=== PATIENT | female | born 1975 | race Caucasian/White ===

== ENCOUNTER 2018-10-14 01:04 | Inpatient (IN) | payer BC ==
[~2018-10-14] VITALS: Ht 154.9 cm; Wt 108.6 kg
[2018-10-14] MEDS ORDERED: normal saline 1000ML IV soln IV ONE (01:20)
[2018-10-14 01:47] LABS: URINE HCG NEGATIVE (NEG)
[2018-10-14 02:00] LABS: ALANINE AMINOTRANSFERASE 27 U/L (12-78); ALBUMIN/GLOBULIN RATIO 0.6 (1.1-1.5); ALKALINE PHOSPHATASE 76 IU/L (46-116); ANION GAP 11 (8-16); ASPARTATE AMINO TRANSFERASE 15 U/L (10-37); BILIRUBIN,TOTAL 0.8 MG/DL (0.1-1.0); BLOOD UREA NITROGEN 9 MG/DL (7-18); BUN/CREATININE RATIO 9.2 (6.6-38.0); CALCIUM 8.9 MG/DL (8.5-10.1); CHLORIDE 103 MMOL/L (99-107); CREATININE 0.98 MG/DL (0.40-0.90); GLUCOSE 134 MG/DL (70-104); MAGNESIUM 1.8 MG/DL (1.5-2.4); POTASSIUM 3.4 MMOL/L (3.5-5.1); SODIUM 138 MMOL/L (135-145); TOTAL CARBON DIOXIDE 23.7 MMOL/L (24-32); TOTAL PROTEIN 7.7 G/DL (6.4-8.2); eGFR 62 ML/MIN
[2018-10-14 02:06] LABS: PARTIAL THROMBOPLASTIN TIME 31 SECONDS (22-32)
[2018-10-14] MEDS ORDERED: azithromycin/NS 500mg/250ml 250 ML IV ONE (02:55)
[2018-10-14] MEDS ORDERED: CefTRIAXone 2gm/D5W 50ml 50 ML IV ONE (02:55)
--- NOTE | 2018-10-14 03:01 | NUR ---
MD MADE AWARE OF PT INCREASING PAIN. NO NEW ORDERS AT THIS TIME.
[2018-10-14 03:10] LABS: CLARITY,URINE SLIGHTLY CLOUDY (Clear); COLOR,URINE YELLOW (Yellow); GLUCOSE, URINE NEGATIVE (Neg); KETONES,URINE NEGATIVE (Neg); LEUKOCYTE ESTERASE ,URINE TRACE (Neg); NITRITES, URINE NEGATIVE (Neg); OCCULT BLOOD,URINE SMALL (Neg); PROTEIN,URINE 30 mg/dl (Neg)
[2018-10-14 03:11] LABS: UA COLLECTION TYPE CLN CATCH MIDSTREAM
--- NOTE | 2018-10-14 03:13 | NUR ---
2 LITERS OF NS GIVEN BOLUS-3RD LITER HELD PER DR. GREY DUE TO PT BECOMING MORE SOB
[2018-10-14 03:18] LABS: BASOPHILS # (AUTO) 0.1 X10'3 (0-0.2); BASOPHILS % (AUTO) 0.3 % (0-1); EOSINOPHILS % (AUTO) 0.2 % (0-6); HEMATOCRIT 37.2 % (35.0-45.0); HEMOGLOBIN 12.2 g/dl (12.0-16.0); LYMPHOCYTES # (AUTO) 1.9 X10'3 (1.1-4.8); LYMPHOCYTES % (AUTO) 9.1 % (21-51); MEAN CORPUSCULAR HEMOGLOBIN 29.3 PG (27.0-31.0); MEAN CORPUSCULAR HGB CONC 32.7 g/dL (33.0-36.5); MEAN CORPUSCULAR VOLUME 89.6 FL (78-98); MEAN PLATELET VOLUME 11.9 FL (7.4-10.4); MONOCYTES # (AUTO) 1.5 X10'3 (0-0.9); MONOCYTES % (AUTO) 7.1 % (2-12); NEUTROPHILS # (AUTO) 17.8 X10'3 (1.8-7.7); NEUTROPHILS % (AUTO) 83.3 % (42-75); PLATELET COUNT 265 X10'3 (140-440); RED BLOOD COUNT 4.15 X10'6 (4.20-5.60); RED CELL DISTRIBUTION WIDTH 14.1 % (11.5-14.5); WHITE BLOOD COUNT 21.4 X10'3 (4.5-11.0)
--- NOTE | 2018-10-14 03:20 | NUR ---
PLACED PT ON 2L O2 NASAL CANNULA PER DR GREY.
[2018-10-14] MEDS ORDERED: HYDR-4353 PO (03:22)
[2018-10-14] MEDS ORDERED: GABA-532 PO (03:22)
[2018-10-14] MEDS ORDERED: DESV25TA PO (03:22)
[2018-10-14] MEDS ORDERED: OVRAL (03:22)
[2018-10-14] MEDS ORDERED: CYCL-1 PO (03:22)
[2018-10-14] MEDS ORDERED: LISI-600 PO (03:22)
[2018-10-14] MEDS ORDERED: albuterol 2.5 mg/0.5ml nebule NEB ONE (03:25)
[2018-10-14] MEDS ORDERED: morphine 4 MG/ML inj SYRINge IV ONE (03:25)
[2018-10-14] MEDS ORDERED: albuterol 2.5 MG/3 ML nebule NEB ONE (03:25)
[2018-10-14 03:27] LABS: URINE AMPHETAMINE SCREEN NEGATIVE (Neg); URINE BARBITUATE SCREEN NEGATIVE (Neg); URINE BENZODIAZEPINES SCREEN NEGATIVE (Neg); URINE CANNABINOID SCREEN NEGATIVE (Neg); URINE COCAINE SCREEN NEGATIVE (Neg); URINE METHADONE SCREEN NEGATIVE (Neg); URINE OPIATE SCREEN POSITIVE (Neg); URINE PHENCYCLIDINE SCREEN NEGATIVE (Neg)
[2018-10-14 03:29] LABS: BACTERIA,URINE 2+ /HPF (Neg); MUCUS STRANDS MANY /LPF (Neg); RBC,URINE NONE SEEN /HPF (0-2); SQUAMOUS EPITHELIAL CELL,UR MANY /LPF (FEW)
[2018-10-14] MEDS ORDERED: HYDROcodone/acetaminophen 5mg/325mg tablet PO PRN (03:40)
[2018-10-14] MEDS ORDERED: magnesium 4gm in 100ml NS 100 ML IV PRN (03:40)
[2018-10-14] MEDS ORDERED: magnesium Cl slow-release 64mg tablet PO PRN (03:40)
[2018-10-14] MEDS ORDERED: ondansetron/PF 4mg/2ml inj IV PRN (03:40)
[2018-10-14] MEDS ORDERED: magnesium 2GM in 50ml NS 50 ML IV PRN (03:40)
[2018-10-14 04:21] LABS: LARGE PLATELETS FEW; PLATELET ESTIMATE NORMAL
[2018-10-14] MEDS ORDERED: iohexol 300mg/ml 100ml inj. ONE (04:29)
[2018-10-14] MEDS: normal saline 1000ml 1,000 ML IV SCH ×3 (04:35→14:10)
[2018-10-14 05:12] VITALS: BP 142/81
[2018-10-14] MEDS: morphine 2 MG/ML inj. syringe IV PRN ×3 (05:21→16:03)
[2018-10-14] MEDS: VANCOmycin 1250MG/NS 250ml Bag 250 ML IV SCH ×2 (05:21→15:58)
[2018-10-14 06:00] VITALS: BP 140/74
[2018-10-14] MEDS: acetaminophen 325mg tablet PO PRN (06:33)
[2018-10-14] MEDS ORDERED: pantoprazole 40mg Tablet.DR PO SCH (07:30)
[2018-10-14] MEDS ORDERED: lisinopril 20mg tablet PO SCH (08:00)
[2018-10-14] MEDS: DESVENLAFAXINE SUCCINATE 50 MG PO SCH (08:00)
[2018-10-14] MEDS: HYDROcodone/acetaminophen 10/325mg tab PO PRN ×3 (09:30→20:07)
[2018-10-14] MEDS: pantoprazole 40mg Tablet.DR PO SCH (09:33)
[2018-10-14] MEDS: piperacillin/tazo 3.375gm/50ml 50 ML IV SCH ×2 (10:04→15:56)
[2018-10-14 11:00] VITALS: BP 135/89
[2018-10-14] MEDS ORDERED: potassium Cl 20 mEq SR tablet PO PRN (12:15)
[2018-10-14] MEDS ORDERED: potassium CL 10mEq/100ml bag 100 ML IV PRN (12:15)
[2018-10-14] MEDS: potassium Cl 20 mEq SR tablet PO PRN ×2 (14:58→20:07)
[2018-10-14 15:00] VITALS: BP 111/54
[2018-10-14] MEDS: metoprolol tartrate 25mg tablet PO SCH ×2 (16:04→20:06)
--- NOTE | 2018-10-14 16:51 | NUR ---
PAGER ID: [phone] MESSAGE: Medardo 3015AIsaias. Lab just called and said they do not have the 2nd blood culture for this patient. The patient is receiving abx would you like them to come draw it or not. Freida [id number]
--- NOTE | 2018-10-14 17:50 | NUR ---
Rm [id number]. Patient would like a breathing trxt lashon. Thank you.
--- NOTE | 2018-10-14 18:33 | NUR ---
Problems reprioritized. Patient report given, questions answered & plan of care reviewed with Chris JOSEPH. Patient stable at transfer of care.
--- NOTE | 2018-10-14 18:34 | NUR ---
Patient in room PCU 3017B. I have received report from JAKE Guan and had the opportunity to ask questions and assume patient care. Patient awake for bedside report and is stable at this time. Vancomycin and Zosyn infusing per provider order. Will continue to monitor closely.
[2018-10-14] MEDS: ipratropium/albuterol 3ml nebule NEB PRN (18:36)
[2018-10-14 19:00] VITALS: BP 156/90
[2018-10-14] MEDS: lactobacillus rhamnosus 10,000 MMU CELLS/CAPSULE PO SCH (20:05)
[2018-10-14 23:00] VITALS: BP 111/54
[2018-10-15] MEDS: normal saline 1000ml 1,000 ML IV SCH ×5 (00:01→22:43)
[2018-10-15] MEDS: HYDROcodone/acetaminophen 10/325mg tab PO PRN ×5 (00:03→22:36)
[2018-10-15] MEDS: potassium Cl 20 mEq SR tablet PO PRN (00:03)
[2018-10-15] MEDS: piperacillin/tazo 3.375gm/50ml 50 ML IV SCH ×3 (00:15→16:33)
[2018-10-15 03:00] VITALS: BP 138/56
[2018-10-15] MEDS: VANCOmycin 1250MG/NS 250ml Bag 250 ML IV SCH (04:41)
[2018-10-15 06:03] LABS: BASOPHILS # (AUTO) 0.1 X10'3 (0-0.2); BASOPHILS % (AUTO) 0.6 % (0-1); EOSINOPHILS # (AUTO) 0.2 X10'3 (0-0.9); EOSINOPHILS % (AUTO) 1.2 % (0-6); HEMATOCRIT 31.8 % (35.0-45.0); HEMOGLOBIN 10.6 g/dl (12.0-16.0); LYMPHOCYTES # (AUTO) 2.1 X10'3 (1.1-4.8); LYMPHOCYTES % (AUTO) 13.6 % (21-51); MEAN CORPUSCULAR HEMOGLOBIN 29.8 PG (27.0-31.0); MEAN CORPUSCULAR HGB CONC 33.4 g/dL (33.0-36.5); MEAN CORPUSCULAR VOLUME 89.1 FL (78-98); MONOCYTES # (AUTO) 0.9 X10'3 (0-0.9); MONOCYTES % (AUTO) 5.7 % (2-12); NEUTROPHILS # (AUTO) 12.5 X10'3 (1.8-7.7); NEUTROPHILS % (AUTO) 78.9 % (42-75); PLATELET COUNT 235 X10'3 (140-440); RED BLOOD COUNT 3.56 X10'6 (4.20-5.60); RED CELL DISTRIBUTION WIDTH 13.7 % (11.5-14.5); WHITE BLOOD COUNT 15.8 X10'3 (4.5-11.0)
[2018-10-15 06:06] LABS: ALBUMIN 2.2 G/DL (3.4-5.0); ANION GAP 12 (8-16); BLOOD UREA NITROGEN 7 MG/DL (7-18); BUN/CREATININE RATIO 8.3 (6.6-38.0); CALCIUM 8.5 MG/DL (8.5-10.1); CHLORIDE 107 MMOL/L (99-107); CREATININE 0.84 MG/DL (0.40-0.90); GLUCOSE 101 MG/DL (70-104); MAGNESIUM 1.8 MG/DL (1.5-2.4); POTASSIUM 3.6 MMOL/L (3.5-5.1); SODIUM 140 MMOL/L (135-145); TOTAL CARBON DIOXIDE 20.8 MMOL/L (24-32); eGFR 74 ML/MIN
--- NOTE | 2018-10-15 06:12 | NUR ---
Problems reprioritized. Patient report given, questions answered & plan of care reviewed with JAKE Guan and JAKE Reddy.
--- NOTE | 2018-10-15 06:26 | NUR ---
Patient in room PCU 3011. I have received report from Chris JOSEPH and had the opportunity to ask questions and assume patient care.
[2018-10-15 07:05] VITALS: BP 139/79
[2018-10-15] MEDS: lactobacillus rhamnosus 10,000 MMU CELLS/CAPSULE PO SCH ×2 (07:24→19:42)
[2018-10-15] MEDS: metoprolol tartrate 25mg tablet PO SCH ×2 (07:24→19:42)
[2018-10-15] MEDS: pantoprazole 40mg Tablet.DR PO SCH (07:24)
[2018-10-15] MEDS: DESVENLAFAXINE SUCCINATE 50 MG PO SCH (07:25)
[2018-10-15] MEDS: morphine 2 MG/ML inj. syringe IV PRN ×3 (07:26→19:49)
--- NOTE | 2018-10-15 08:38 | NUR ---
Page sent: [id number] Alyson Esparza. Patient needs PIV placed. Nursing attempts were unsuccessful. Thank you Maureen RN - PCU
[2018-10-15] MEDS: ipratropium/albuterol 3ml nebule NEB PRN ×3 (10:06→21:53)
--- NOTE | 2018-10-15 10:33 | NUR ---
PAGER ID: [phone] MESSAGE: Isaias Gomez. Patient cannot have Pristiq medication brought from home, can we discontinue the medication? Freida [phone]
[2018-10-15 11:00] VITALS: BP 150/95
[2018-10-15 15:00] VITALS: BP 144/91
[2018-10-15] MEDS ORDERED: VANCOMYCIN LEVEL IV ONE (15:30)
--- NOTE | 2018-10-15 18:21 | NUR ---
Problems reprioritized. Patient report given, questions answered & plan of care reviewed with Chris JOSEPH. Patient stable at transfer of care.
--- NOTE | 2018-10-15 18:24 | NUR ---
[place] documentation: I have reviewed and agree with interventions, assessments performed and documented by Maureen JOSEPH. [place] Medication Administration: For this medication-pass time frame, medication were reviewed, dispensed, administered and documented per hospital policy by Maureen JOSEPH.
--- NOTE | 2018-10-15 18:47 | NUR ---
Patient in room PCU 3012a. I have received report from JAKE Guan and had the opportunity to ask questions and assume patient care. Patient awake for bedside report and consuming evening meal in chair. On 2L NC. Zosyn infusing at 12.5 mL/hr. Will continue to monitor closely.
[2018-10-15 19:00] VITALS: BP 174/93
[2018-10-15 23:00] VITALS: BP 122/83
[2018-10-16] MEDS: piperacillin/tazo 3.375gm/50ml 50 ML IV SCH ×3 (00:17→17:43)
[2018-10-16] MEDS: HYDROcodone/acetaminophen 10/325mg tab PO PRN ×4 (03:49→21:16)
[2018-10-16] MEDS: ipratropium/albuterol 3ml nebule NEB PRN ×4 (04:10→20:19)
[2018-10-16] MEDS: normal saline 1000ml 1,000 ML IV SCH (04:46)
[2018-10-16 06:16] LABS: ALBUMIN 2.2 G/DL (3.4-5.0); ANION GAP 15 (8-16); BLOOD UREA NITROGEN 14 MG/DL (7-18); BUN/CREATININE RATIO 4.6 (6.6-38.0); CALCIUM 8.1 MG/DL (8.5-10.1); CHLORIDE 106 MMOL/L (99-107); CREATININE 3.03 MG/DL (0.40-0.90); GLUCOSE 137 MG/DL (70-104); MAGNESIUM 1.8 MG/DL (1.5-2.4); POTASSIUM 3.3 MMOL/L (3.5-5.1); SODIUM 139 MMOL/L (135-145); TOTAL CARBON DIOXIDE 17.7 MMOL/L (24-32); eGFR 17 ML/MIN
[2018-10-16 06:19] LABS: BASOPHILS # (AUTO) 0.1 X10'3 (0-0.2); BASOPHILS % (AUTO) 0.5 % (0-1); EOSINOPHILS # (AUTO) 0.2 X10'3 (0-0.9); EOSINOPHILS % (AUTO) 1.5 % (0-6); HEMATOCRIT 33.3 % (35.0-45.0); HEMOGLOBIN 10.9 g/dl (12.0-16.0); LYMPHOCYTES # (AUTO) 1.6 X10'3 (1.1-4.8); LYMPHOCYTES % (AUTO) 10.9 % (21-51); MEAN CORPUSCULAR HEMOGLOBIN 29.3 PG (27.0-31.0); MEAN CORPUSCULAR HGB CONC 32.7 g/dL (33.0-36.5); MEAN CORPUSCULAR VOLUME 89.4 FL (78-98); MEAN PLATELET VOLUME 10.5 FL (7.4-10.4); MONOCYTES # (AUTO) 1.1 X10'3 (0-0.9); MONOCYTES % (AUTO) 7.9 % (2-12); NEUTROPHILS # (AUTO) 11.5 X10'3 (1.8-7.7); NEUTROPHILS % (AUTO) 79.2 % (42-75); PLATELET COUNT 267 X10'3 (140-440); RED BLOOD COUNT 3.72 X10'6 (4.20-5.60); RED CELL DISTRIBUTION WIDTH 13.8 % (11.5-14.5); WHITE BLOOD COUNT 14.5 X10'3 (4.5-11.0)
--- NOTE | 2018-10-16 06:22 | NUR ---
Problems reprioritized. Patient report given, questions answered & plan of care reviewed with JAKE Berman.
--- NOTE | 2018-10-16 06:36 | NUR ---
Patient in room PCU 3015. I have received report from JAKE Perez and had the opportunity to ask questions and assume patient care.
[2018-10-16 07:00] VITALS: BP 141/92
[2018-10-16] MEDS ORDERED: sodium bicarbonate inj. 100 ML in dextrose 5%-water 1,000 ML IV SCH (07:15)
[2018-10-16] MEDS: pantoprazole 40mg Tablet.DR PO SCH (08:19)
[2018-10-16] MEDS: metoprolol tartrate 25mg tablet PO SCH ×2 (08:19→19:04)
[2018-10-16] MEDS: lactobacillus rhamnosus 10,000 MMU CELLS/CAPSULE PO SCH ×2 (08:20→20:00)
[2018-10-16] MEDS: sodium bicarbonate inj. 75 ML in dextrose 5% water 500ml 500 ML IV SCH ×4 (09:31→20:41)
--- NOTE | 2018-10-16 09:31 | NUR ---
Ms. Esparza, rm # [id number] K+3.3 - meets protocol for replacement. If Creatinine is above 2.5 dose must be cut in half. Since her Creatinine is so high, do you want me to give it at all? Antonella X [id number] pcu
[2018-10-16] MEDS ORDERED: potassium Cl 20 mEq SR tablet PO ONE ×2 (09:50→14:00)
--- NOTE | 2018-10-16 10:15 | NUR ---
Patient up to bathroom to void and became quite sob. SA02 down to 70's, 02 turned up to 4L/NC. Encouraged to breathe slower. RT paged for RT.
--- NOTE | 2018-10-16 10:18 | NUR ---
Message to Dr. Skye Esparza, 4486 A Ambulated to bathroom and became SOB and desaturated down to 78%. 02 turned up to 4 L and RT paged for a stat RT. Barely maintaining 91% on 4 L. Antonella [facility] EXT [id number]
[2018-10-16 11:00] VITALS: BP 203/116
--- NOTE | 2018-10-16 11:00 | NUR ---
RT in for treatment. Immediately afterward, SA02 was 97%. However, began to drop to high 80's.
--- NOTE | 2018-10-16 11:15 | NUR ---
Dr. Cheung in to see patient. BP 186/111 (verified manually). HR 128 SA02 down to 88%. Orders received.
[2018-10-16] MEDS: LORazepam 0.5 MG tablet PO PRN ×3 (11:49→20:18)
[2018-10-16 12:47] LABS: D-DIMER 2.85 MG/L FEU (0-0.50)
[2018-10-16 13:24] LABS: CLARITY,URINE SLIGHTLY CLOUDY (Clear); COLOR,URINE STRAW (Yellow); GLUCOSE, URINE NEGATIVE (Neg); KETONES,URINE NEGATIVE (Neg); LEUKOCYTE ESTERASE ,URINE TRACE (Neg); NITRITES, URINE NEGATIVE (Neg); OCCULT BLOOD,URINE TRACE-INTACT (Neg); PROTEIN,URINE NEGATIVE (Neg); UROBILINOGEN,URINE 0.2 E.U/dL (0.2-1.0)
[2018-10-16 13:37] LABS: UA COLLECTION TYPE STRAIGHT CATH
[2018-10-16 13:46] LABS: RENAL CELLS, URINE FEW /HPF
[2018-10-16 13:47] LABS: TRANSITIONAL EPI CELLS,URINE FEW /HPF
[2018-10-16 13:48] LABS: BACTERIA,URINE FEW /HPF (Neg); RBC,URINE 0-2 /HPF (0-2); SQUAMOUS EPITHELIAL CELL,UR FEW /LPF (FEW); WBC,URINE 0-4 /HPF (0-4)
[2018-10-16 14:16] LABS: ABG BASE EXCESS -7.3 mmol/L (-2.0-3.0); ABG HCO3 16.7 mmol/L (22.0-26.0); ABG OXYGEN SATURATION 92.6 % (95-98); ABG PCO2 (T) 29.7 mmHg (35.0-45.0); ABG PH (T) 7.369 (7.350-7.450); ABG PO2 (T) 63.9 mmHg (83-108); ALLEN'S TEST Positive; FCOHb 0.2 % (0.5-1.5); FLOW 3 L/min; FMetHb 0.1 % (0.3-1.12); FO2Hb 92.3 % (94-100); TOTAL HEMOGLOBIN 12.3 G/dl (12.0-16.0)
[2018-10-16 14:33] LABS: UA EOSINOPHILS NO EOS /HPF
[2018-10-16 15:00] VITALS: BP 203/116
--- NOTE | 2018-10-16 15:30 | NUR ---
Dr. Cheung paged regarding BP of 168/112. Came in to see patient and orders received.
[2018-10-16] MEDS: hydrALAZINE 20mg/ml inj. IV PRN (17:43)
--- NOTE | 2018-10-16 18:13 | NUR ---
Problems reprioritized. Patient report given, questions answered & plan of care reviewed with JAKE Perez.
[2018-10-16] MEDS: morphine 2 MG/ML inj. syringe IV PRN (18:49)
[2018-10-16 19:00] VITALS: BP 186/106
--- NOTE | 2018-10-16 19:12 | NUR ---
Patient in room PCU 0270D. I have received report from JAKE Berman and had the opportunity to ask questions and assume patient care. Patient awake for bedside report. Zosyn was not running and started at 1910. Zosyn scanned at 1743 per eMAR. Patient still states she is short of breath and appears flushed. 3L NC with humidifier. 0.5 mg morphine administered at 1849 and metoprolol administered at 1904 for elevated B/P of 186/110 HR 130. Attempted to notify day hospitalist with no return phone call. at bedside. Will continue to monitor patient closely.
--- NOTE | 2018-10-16 19:35 | NUR ---
Rechecked B/P and 143/69, HR 133 from 175/103, HR 136. Will continue to monitor patient closely.
[2018-10-16] MEDS ORDERED: furosemide 10 MG/1 ML 10ml inj IV ONE (20:15)
[2018-10-16] MEDS ORDERED: nitroGLYCERIN 1gm ointment UD TP ONE (20:15)
--- NOTE | 2018-10-16 20:21 | NUR ---
Patient c/o severe SOB and SYS BP 170's. Dr. Gordon notified and new oders for 1inch nitro paste to chest X1 and 80 mg IV puch lasix X1. Bicarb drip held temporarily. Will start once patient condition improves. Ativan administered by [employer] Zac. Addendum: 10/16/18 at 2249 by Estefania York RN 2144 patient's HR 121 and B/P 146/95. Decreased shortness of breath but still diaphoretic. Cold compresses to forehead, chest, and axillae. Family, Sarai, at bedside. Will continue to monitor closely.
[2018-10-16 23:00] VITALS: BP 145/90
[2018-10-17] VITALS (7 sets, daily range): BP systolic 147–183; BP diastolic 93–108
[2018-10-17] MEDS: piperacillin/tazo 3.375gm/50ml 50 ML IV SCH ×3 (00:27→20:58)
[2018-10-17] MEDS: sodium bicarbonate inj. 75 ML in dextrose 5% water 500ml 500 ML IV SCH ×7 (00:31→21:37)
[2018-10-17] MEDS: morphine 2 MG/ML inj. syringe IV PRN ×3 (00:43→15:52)
--- NOTE | 2018-10-17 01:35 | NUR ---
Per Dr. Gordon, Bicarb drip will resume at 0811.
[2018-10-17] MEDS: ipratropium/albuterol 3ml nebule NEB PRN ×2 (02:52→08:48)
[2018-10-17] MEDS: HYDROcodone/acetaminophen 10/325mg tab PO PRN ×3 (03:08→19:45)
[2018-10-17] MEDS ORDERED: VANCOMYCIN LEVEL IV ONE (04:30)
[2018-10-17 06:07] LABS: BASOPHILS # (AUTO) 0.1 X10'3 (0-0.2); EOSINOPHILS # (AUTO) 0.1 X10'3 (0-0.9); EOSINOPHILS % (AUTO) 0.9 % (0-6); HEMATOCRIT 31.4 % (35.0-45.0); HEMOGLOBIN 10.5 g/dl (12.0-16.0); LYMPHOCYTES # (AUTO) 1.5 X10'3 (1.1-4.8); LYMPHOCYTES % (AUTO) 12.2 % (21-51); MEAN CORPUSCULAR HEMOGLOBIN 29.6 PG (27.0-31.0); MEAN CORPUSCULAR HGB CONC 33.4 g/dL (33.0-36.5); MEAN CORPUSCULAR VOLUME 88.5 FL (78-98); MEAN PLATELET VOLUME 9.9 FL (7.4-10.4); MONOCYTES # (AUTO) 1.5 X10'3 (0-0.9); MONOCYTES % (AUTO) 12.8 % (2-12); NEUTROPHILS # (AUTO) 8.7 X10'3 (1.8-7.7); NEUTROPHILS % (AUTO) 73.1 % (42-75); PLATELET COUNT 281 X10'3 (140-440); RED BLOOD COUNT 3.55 X10'6 (4.20-5.60); RED CELL DISTRIBUTION WIDTH 14.1 % (11.5-14.5); WHITE BLOOD COUNT 11.9 X10'3 (4.5-11.0)
--- NOTE | 2018-10-17 06:23 | NUR ---
Problems reprioritized. Patient report given, questions answered & plan of care reviewed with JAKE Zavaleta.
[2018-10-17 06:38] LABS: ANION GAP 17 (8-16); BLOOD UREA NITROGEN 16 MG/DL (7-18); CALCIUM 8.5 MG/DL (8.5-10.1); CHLORIDE 104 MMOL/L (99-107); CREATININE 4.01 MG/DL (0.40-0.90); GLUCOSE 119 MG/DL (70-104); MAGNESIUM 1.7 MG/DL (1.5-2.4); POTASSIUM 3.4 MMOL/L (3.5-5.1); SODIUM 140 MMOL/L (135-145); TOTAL CARBON DIOXIDE 19.3 MMOL/L (24-32); eGFR 12 ML/MIN
[2018-10-17] MEDS: lactobacillus rhamnosus 10,000 MMU CELLS/CAPSULE PO SCH ×2 (07:47→19:43)
[2018-10-17] MEDS: pantoprazole 40mg Tablet.DR PO SCH (07:47)
[2018-10-17] MEDS: potassium Cl 20 mEq SR tablet PO PRN ×3 (07:48→17:25)
[2018-10-17] MEDS: metoprolol tartrate 25mg tablet PO SCH ×2 (07:49→19:44)
[2018-10-17 08:01] LABS: TOTAL CELLS COUNTED 100
[2018-10-17 08:04] LABS: PLATELET ESTIMATE NORMAL
[2018-10-17 08:10] LABS: TOXIC GRANULATION 1+
[2018-10-17 08:12] LABS: POLYCHROMASIA FEW
[2018-10-17 08:19] LABS: GIANT PLATELET FEW; LARGE PLATELETS MODERATE
[2018-10-17] MEDS: hydrALAZINE 20mg/ml inj. IV PRN ×2 (13:29→23:05)
[2018-10-17] MEDS: LORazepam 0.5 MG tablet PO PRN ×2 (13:47→23:45)
[2018-10-17] MEDS ORDERED: magnesium 4gm in 100ml NS 100 ML IV PRN (17:10)
[2018-10-17] MEDS ORDERED: magnesium Cl slow-release 64mg tablet PO PRN (17:10)
[2018-10-17] MEDS ORDERED: potassium Cl 20 mEq SR tablet PO PRN (17:10)
[2018-10-17] MEDS ORDERED: potassium CL 10mEq/100ml bag 100 ML IV PRN (17:10)
--- NOTE | 2018-10-17 18:00 | NUR ---
Patient in room PCU 3015. I have received report from Meghann JOSEPH and Nheal JOSEPH and had the opportunity to ask questions and assume patient care.
--- NOTE | 2018-10-17 18:13 | NUR ---
Problems reprioritized. Patient report given, questions answered & plan of care reviewed with paty.
[2018-10-17] MEDS: famotidine 20mg tablet PO SCH (19:43)
[2018-10-17] MEDS: heparin, porcine 5000 units/ml vial SQ SCH (19:46)
[2018-10-18] VITALS (7 sets, daily range): BP systolic 144–168; BP diastolic 88–104
[2018-10-18] MEDS: morphine 2 MG/ML inj. syringe IV PRN ×3 (01:40→20:29)
[2018-10-18] MEDS: sodium bicarbonate inj. 75 ML in dextrose 5% water 500ml 500 ML IV SCH (03:19)
[2018-10-18 05:31] LABS: BASOPHILS # (AUTO) 0.1 X10'3 (0-0.2); BASOPHILS % (AUTO) 0.8 % (0-1); EOSINOPHILS # (AUTO) 0.2 X10'3 (0-0.9); EOSINOPHILS % (AUTO) 1.6 % (0-6); HEMOGLOBIN 10.9 g/dl (12.0-16.0); LYMPHOCYTES # (AUTO) 1.4 X10'3 (1.1-4.8); LYMPHOCYTES % (AUTO) 14.6 % (21-51); MEAN CORPUSCULAR HEMOGLOBIN 29.7 PG (27.0-31.0); MEAN CORPUSCULAR HGB CONC 34.2 g/dL (33.0-36.5); MEAN CORPUSCULAR VOLUME 86.9 FL (78-98); MONOCYTES % (AUTO) 10.7 % (2-12); NEUTROPHILS % (AUTO) 72.3 % (42-75); PLATELET COUNT 326 X10'3 (140-440); RED BLOOD COUNT 3.68 X10'6 (4.20-5.60); RED CELL DISTRIBUTION WIDTH 13.7 % (11.5-14.5); WHITE BLOOD COUNT 9.8 X10'3 (4.5-11.0)
[2018-10-18 05:39] LABS: ANION GAP 11 (8-16); BLOOD UREA NITROGEN 19 MG/DL (7-18); BUN/CREATININE RATIO 4.8 (6.6-38.0); CALCIUM 8.1 MG/DL (8.5-10.1); CHLORIDE 103 MMOL/L (99-107); CREATININE 3.99 MG/DL (0.40-0.90); GLUCOSE 154 MG/DL (70-104); MAGNESIUM 1.7 MG/DL (1.5-2.4); POTASSIUM 3.1 MMOL/L (3.5-5.1); SODIUM 142 MMOL/L (135-145); TOTAL CARBON DIOXIDE 28.3 MMOL/L (24-32); eGFR 12 ML/MIN
--- NOTE | 2018-10-18 06:14 | NUR ---
Patient in room PCU 3015. I have received report from paty and had the opportunity to ask questions and assume patient care.
--- NOTE | 2018-10-18 06:21 | NUR ---
Problems reprioritized. Patient report given, questions answered & plan of care reviewed with Meghann JOSEPH.
[2018-10-18] MEDS: HYDROcodone/acetaminophen 10/325mg tab PO PRN ×3 (06:37→18:00)
[2018-10-18] MEDS: potassium Cl 20 mEq SR tablet PO PRN ×3 (06:37→23:06)
[2018-10-18] MEDS: famotidine 20mg tablet PO SCH ×2 (07:18→20:30)
[2018-10-18] MEDS: heparin, porcine 5000 units/ml vial SQ SCH (07:18)
[2018-10-18] MEDS: lactobacillus rhamnosus 10,000 MMU CELLS/CAPSULE PO SCH ×2 (07:18→20:30)
[2018-10-18] MEDS: metoprolol tartrate 25mg tablet PO SCH ×2 (07:18→15:37)
[2018-10-18] MEDS: piperacillin/tazo 3.375gm/50ml 50 ML IV SCH ×2 (07:19→20:28)
[2018-10-18 08:45] LABS: PLATELET ESTIMATE NORMAL; POLYCHROMASIA 1+; TOTAL CELLS COUNTED 100
--- NOTE | 2018-10-18 10:37 | NUR ---
Problems reprioritized. Patient report given, questions answered & plan of care reviewed with jose angel.
[2018-10-18] MEDS: normal saline 1000ml 1,000 ML IV SCH ×2 (10:40)
[2018-10-18] MEDS: hydrALAZINE 20mg/ml inj. IV PRN ×2 (11:47→19:25)
--- NOTE | 2018-10-18 12:14 | NUR ---
PAGER ID: [phone] MESSAGE: JAKE Newton, ext [phone], Isaias, patient has bloody nose, attempting to stop it, received heparin this morning, pressure applied and ice pack, may need rhino rocket, please call.
--- NOTE | 2018-10-18 12:15 | NUR ---
PAGER ID: [phone] MESSAGE: JAKE Newton, ext [phone], [phone], Isaias, patient bloody nose currently stable, pt BP 160/108, gave hydralazine, will update as needed
--- NOTE | 2018-10-18 13:10 | NUR ---
Received orders from Dr Young for PRN robitussin with codeine for cough as well as stat INR. Orders placed per .
[2018-10-18] MEDS ORDERED: guaiFENesin/codeine phos 10ml UD oral syrup PO PRN (13:15)
--- NOTE | 2018-10-18 13:22 | NUR ---
1255 DR NELSON AT BEDSIDE RHINO ROCKET PLACED IN LEFT CHERRY. SCANT BLEEDING TO LEFT CHERRY AND AROUND ROCKET. ICE PAC APPLIED O BRIDGE OF NOSE. 1320 STILL BLOOD DRIBBLING FROM AROUND [facility]. Addendum: 10/18/18 at 1325 by Bernadine Quiñonez RN Amended: Links added.
--- NOTE | 2018-10-18 13:39 | NUR ---
PAGER ID: [phone] MESSAGE: JAKE Newton, ext [phone], [phone], Isaias, patient's BP 169/114, hydralazine was given 1.5hrs ago. please advise, thank you.
[2018-10-18] MEDS ORDERED: amLODIPine 5mg tablet PO ONE (13:40)
[2018-10-18] MEDS ORDERED: hydrALAZINE 20mg/ml inj. IV ONE (13:55)
--- NOTE | 2018-10-18 14:53 | NUR ---
PAGER ID: [phone] MESSAGE: JAKE Newton, ext [phone], [phone], Isaias, BP is 172/110, 10mg hydralazine and 5mg amlodipine were given 1hr ago, there is fresh oozing around rhino rocket and from R nostril, patient states new headache in back of head.
--- NOTE | 2018-10-18 15:23 | NUR ---
PAGER ID: [phone] MESSAGE: JAKE Newton, ext [phone], [phone], Yudith Esparzaet dislodged, bleeding resumed, BP still 161/101.
--- NOTE | 2018-10-18 15:25 | NUR ---
PAGER ID: [phone] MESSAGE: [id number] LISA HUSSEIN. BLEEDING. HIGH SBP. BERNADINE AYALA Addendum: 10/18/18 at 1526 by Bernadine Quiñonez RN Amended: Links added.
--- NOTE | 2018-10-18 15:28 | NUR ---
DR NELSON @ [facility]. Addendum: 10/18/18 at 1536 by Bernadine Quiñonez RN Amended: Links added.
--- NOTE | 2018-10-18 15:36 | NUR ---
FUNMILAYO REAVES APPLIED BY DR NELSON. Addendum: 10/18/18 at 1536 by Bernadine Quiñonez RN Amended: Links added.
--- NOTE | 2018-10-18 15:47 | NUR ---
Metoprolol given early per Dr. Young to help with patient's BP, morphine also given for pain, will continue to monitor.
[2018-10-18] MEDS: LORazepam 0.5 MG tablet PO PRN ×2 (16:31→23:06)
[2018-10-18] MEDS: acetaminophen 325mg tablet PO PRN (16:36)
--- NOTE | 2018-10-18 17:44 | NUR ---
PAGER ID: [phone] MESSAGE: JAKE Newton, ext [phone], [phone], Isaias, patient states morphine was ineffective, pain level is still high, BP 158/100
--- NOTE | 2018-10-18 18:00 | NUR ---
Patient in room PCU 3015. I have received report from Lamar JOSEPH and had the opportunity to ask questions and assume patient care.
--- NOTE | 2018-10-18 18:28 | NUR ---
Problems reprioritized. Patient report given, questions answered & plan of care reviewed with JAKE De La O. Patient currently resting in bed, stable at shift change
[2018-10-19] MEDS: HYDROcodone/acetaminophen 10/325mg tab PO PRN ×5 (00:13→21:05)
[2018-10-19] MEDS: cyclobenzaprine 10mg tablet PO PRN ×2 (00:14→21:05)
[2018-10-19 02:00] VITALS: BP 158/82
--- NOTE | 2018-10-19 05:00 | NUR ---
Patient only needed hydralazine once tonight. Flexeril was given with Sixes at 0000, Patient stated that she does that at home before going to bed and works very well. She was able to sleep tonight.
[2018-10-19] MEDS: normal saline 1000ml 1,000 ML IV SCH ×2 (05:30→15:30)
[2018-10-19 06:00] VITALS: BP 165/100
[2018-10-19 06:25] LABS: BASOPHILS # (AUTO) 0.1 X10'3 (0-0.2); BASOPHILS % (AUTO) 1.1 % (0-1); EOSINOPHILS # (AUTO) 0.3 X10'3 (0-0.9); EOSINOPHILS % (AUTO) 2.9 % (0-6); HEMATOCRIT 29.7 % (35.0-45.0); LYMPHOCYTES # (AUTO) 1.5 X10'3 (1.1-4.8); LYMPHOCYTES % (AUTO) 13.8 % (21-51); MEAN CORPUSCULAR HEMOGLOBIN 29.4 PG (27.0-31.0); MEAN CORPUSCULAR HGB CONC 33.6 g/dL (33.0-36.5); MEAN CORPUSCULAR VOLUME 87.5 FL (78-98); MEAN PLATELET VOLUME 9.3 FL (7.4-10.4); MONOCYTES # (AUTO) 1.2 X10'3 (0-0.9); MONOCYTES % (AUTO) 10.6 % (2-12); NEUTROPHILS # (AUTO) 7.9 X10'3 (1.8-7.7); NEUTROPHILS % (AUTO) 71.6 % (42-75); PLATELET COUNT 334 X10'3 (140-440); RED BLOOD COUNT 3.39 X10'6 (4.20-5.60); RED CELL DISTRIBUTION WIDTH 14.1 % (11.5-14.5)
[2018-10-19 06:36] LABS: ANION GAP 12 (8-16); BLOOD UREA NITROGEN 22 MG/DL (7-18); BUN/CREATININE RATIO 5.8 (6.6-38.0); CALCIUM 8.1 MG/DL (8.5-10.1); CHLORIDE 105 MMOL/L (99-107); CREATININE 3.81 MG/DL (0.40-0.90); GLUCOSE 124 MG/DL (70-104); MAGNESIUM 1.7 MG/DL (1.5-2.4); POTASSIUM 3.4 MMOL/L (3.5-5.1); SODIUM 143 MMOL/L (135-145); TOTAL CARBON DIOXIDE 25.7 MMOL/L (24-32); eGFR 13 ML/MIN
--- NOTE | 2018-10-19 06:40 | NUR ---
Problems reprioritized. Patient report given, questions answered & plan of care reviewed with Pat RN.
--- NOTE | 2018-10-19 06:40 | NUR ---
Patient in room [facility] 3015. I have received report from Lamar JOSEPH and had the opportunity to ask questions and assume patient care. Addendum: 10/19/18 at 0645 by Jaylyn Gloria RN 10/18/18 [facility]
[2018-10-19] MEDS: morphine 2 MG/ML inj. syringe IV PRN ×2 (07:53→16:35)
[2018-10-19] MEDS: famotidine 20mg tablet PO SCH ×2 (07:57→20:30)
[2018-10-19] MEDS: piperacillin/tazo 3.375gm/50ml 50 ML IV SCH ×2 (07:57→21:40)
[2018-10-19] MEDS: lactobacillus rhamnosus 10,000 MMU CELLS/CAPSULE PO SCH ×2 (07:58→20:30)
[2018-10-19] MEDS: metoprolol tartrate 25mg tablet PO SCH ×2 (07:58→20:29)
[2018-10-19] MEDS: ipratropium/albuterol 3ml nebule NEB PRN (08:35)
[2018-10-19] MEDS: hydrALAZINE 20mg/ml inj. IV PRN (09:44)
[2018-10-19 11:00] VITALS: BP 158/99
[2018-10-19] MEDS: LORazepam 0.5 MG tablet PO PRN (11:10)
--- NOTE | 2018-10-19 11:44 | NUR ---
SPOKE WITH LUCIA DIMAS REGARDING PATIENT'S B/P; ORDERS RECEIVED ANS NOTED. Addendum: 10/19/18 at 1145 by Gilma Cramer RN Amended: Links added.
[2018-10-19] MEDS: hyDRALAzine 10mg tablet PO SCH ×2 (13:18→20:29)
[2018-10-19 15:00] VITALS: BP 163/95
[2018-10-19 18:00] VITALS: BP 165/94
--- NOTE | 2018-10-19 18:00 | NUR ---
Patient in room PCU 3015. I have received report from Jeanna RN and had the opportunity to ask questions and assume patient care.
[2018-10-19 23:00] VITALS: BP 157/97
[2018-10-20] MEDS: HYDROcodone/acetaminophen 10/325mg tab PO PRN ×4 (01:22→21:13)
[2018-10-20] MEDS: normal saline 1000ml 1,000 ML IV SCH ×2 (01:30→12:44)
[2018-10-20 03:00] VITALS: BP 127/85
[2018-10-20 05:25] LABS: MAGNESIUM 1.9 MG/DL (1.5-2.4)
--- NOTE | 2018-10-20 05:45 | NUR ---
Patient slept well all night at SBP was 160 or lower. Patient has voiced her readiness to get out of bed and walk. Pain was well managed with [place] and Flexeril, no Morphine or Ativan was given this shift.
--- NOTE | 2018-10-20 06:26 | NUR ---
Problems reprioritized. Patient report given, questions answered & plan of care reviewed with Jimena JOSEPH.
--- NOTE | 2018-10-20 06:31 | NUR ---
Patient in room PCU 3015. I have received report from Jaylyn JOSEPH and had the opportunity to ask questions and assume patient care. Patient awake in bed with no complaints at this time. All immediate needs met.
[2018-10-20 07:00] VITALS: BP 159/96
[2018-10-20] MEDS: piperacillin/tazo 3.375gm/50ml 50 ML IV SCH ×2 (07:46→19:10)
[2018-10-20] MEDS: potassium Cl 20 mEq SR tablet PO PRN ×2 (07:46→12:43)
[2018-10-20] MEDS: metoprolol tartrate 25mg tablet PO SCH ×2 (07:46→19:11)
[2018-10-20] MEDS: hyDRALAzine 10mg tablet PO SCH ×3 (07:46→21:11)
[2018-10-20] MEDS: famotidine 20mg tablet PO SCH ×2 (07:47→19:11)
[2018-10-20] MEDS: lactobacillus rhamnosus 10,000 MMU CELLS/CAPSULE PO SCH ×2 (07:47→19:11)
--- NOTE | 2018-10-20 09:30 | NUR ---
New order from Dr. Young: Discontinue brown catheter
[2018-10-20] MEDS: morphine 2 MG/ML inj. syringe IV PRN (10:26)
[2018-10-20 11:00] VITALS: BP_SYST 153; BP_SYST 159; BP_DIAS 92; BP_DIAS 96
[2018-10-20 11:27] LABS: ALBUMIN 1.9 G/DL (3.4-5.0); ANION GAP 11 (8-16); BLOOD UREA NITROGEN 21 MG/DL (7-18); BUN/CREATININE RATIO 5.8 (6.6-38.0); CALCIUM 8.3 MG/DL (8.5-10.1); CHLORIDE 108 MMOL/L (99-107); CREATININE 3.63 MG/DL (0.40-0.90); GLUCOSE 107 MG/DL (70-104); POTASSIUM 3.6 MMOL/L (3.5-5.1); SODIUM 144 MMOL/L (135-145); TOTAL CARBON DIOXIDE 25.1 MMOL/L (24-32); eGFR 14 ML/MIN
[2018-10-20 11:43] LABS: BASOPHILS # (AUTO) 0.1 X10'3 (0-0.2); BASOPHILS % (AUTO) 1.1 % (0-1); EOSINOPHILS # (AUTO) 0.5 X10'3 (0-0.9); EOSINOPHILS % (AUTO) 4.3 % (0-6); HEMATOCRIT 31.2 % (35.0-45.0); HEMOGLOBIN 10.2 g/dl (12.0-16.0); LYMPHOCYTES # (AUTO) 1.9 X10'3 (1.1-4.8); LYMPHOCYTES % (AUTO) 16.7 % (21-51); MEAN CORPUSCULAR HEMOGLOBIN 29.2 PG (27.0-31.0); MEAN CORPUSCULAR HGB CONC 32.9 g/dL (33.0-36.5); MEAN CORPUSCULAR VOLUME 88.9 FL (78-98); MEAN PLATELET VOLUME 8.7 FL (7.4-10.4); MONOCYTES % (AUTO) 8.4 % (2-12); NEUTROPHILS # (AUTO) 7.9 X10'3 (1.8-7.7); NEUTROPHILS % (AUTO) 69.5 % (42-75); PLATELET COUNT 385 X10'3 (140-440); RED BLOOD COUNT 3.51 X10'6 (4.20-5.60); RED CELL DISTRIBUTION WIDTH 14.2 % (11.5-14.5); WHITE BLOOD COUNT 11.4 X10'3 (4.5-11.0)
--- NOTE | 2018-10-20 12:01 | NUR ---
New orders from Sarai Prescott: I/S and flutter valve.
--- NOTE | 2018-10-20 12:01 | NUR ---
Discontinued brown catheter. Patient tolerated procedure well. Will monitor for post d/c void.
[2018-10-20 12:16] LABS: TOTAL CELLS COUNTED 100
[2018-10-20 12:19] LABS: ACANTHOCYTES FEW; LARGE PLATELETS FEW; PLATELET ESTIMATE NORMAL; POLYCHROMASIA 1+
[2018-10-20 15:00] VITALS: BP 165/102
[2018-10-20] MEDS: hydrALAZINE 20mg/ml inj. IV PRN (17:07)
[2018-10-20 18:00] VITALS: BP 154/91
--- NOTE | 2018-10-20 18:00 | NUR ---
Patient in room PCU 3015. I have received report from Jimena JOSEPH and had the opportunity to ask questions and assume patient care.
--- NOTE | 2018-10-20 19:06 | NUR ---
Problems reprioritized. Patient report given, questions answered & plan of care reviewed with Jaylyn JOSEPH. Patient stable at transfer of care.
[2018-10-20] MEDS: cyclobenzaprine 10mg tablet PO PRN (21:13)
[2018-10-20 22:00] VITALS: BP 152/92
[2018-10-20] MEDS: LORazepam 0.5 MG tablet PO PRN (22:42)
[2018-10-21] MEDS: normal saline 1000ml 1,000 ML IV SCH ×2 (02:31→07:30)
[2018-10-21] MEDS: HYDROcodone/acetaminophen 10/325mg tab PO PRN ×3 (02:37→12:53)
--- NOTE | 2018-10-21 05:47 | NUR ---
Patient slept very well this night, walked to the bathroom, and SBP under 160 this shift. Patient is excited to go home soon.
[2018-10-21 05:54] LABS: ANION GAP 12 (8-16); BLOOD UREA NITROGEN 21 MG/DL (7-18); BUN/CREATININE RATIO 6.3 (6.6-38.0); CALCIUM 8.7 MG/DL (8.5-10.1); CHLORIDE 107 MMOL/L (99-107); CREATININE 3.36 MG/DL (0.40-0.90); GLUCOSE 106 MG/DL (70-104); PHOSPHORUS 4.3 MG/DL (2.3-4.5); POTASSIUM 3.3 MMOL/L (3.5-5.1); SODIUM 143 MMOL/L (135-145); eGFR 15 ML/MIN
[2018-10-21 05:55] LABS: ALANINE AMINOTRANSFERASE 45 U/L (12-78); ALBUMIN 2.1 G/DL (3.4-5.0); ALBUMIN/GLOBULIN RATIO 0.5 (1.1-1.5); ALKALINE PHOSPHATASE 56 IU/L (46-116); ASPARTATE AMINO TRANSFERASE 45 U/L (10-37); BILIRUBIN,TOTAL 0.3 MG/DL (0.1-1.0); MAGNESIUM 1.9 MG/DL (1.5-2.4); TOTAL PROTEIN 6.4 G/DL (6.4-8.2)
[2018-10-21 06:22] LABS: BASOPHILS # (AUTO) 0.2 X10'3 (0-0.2); BASOPHILS % (AUTO) 1.4 % (0-1); EOSINOPHILS # (AUTO) 0.5 X10'3 (0-0.9); EOSINOPHILS % (AUTO) 4.4 % (0-6); HEMATOCRIT 30.5 % (35.0-45.0); HEMOGLOBIN 10.2 g/dl (12.0-16.0); LYMPHOCYTES # (AUTO) 1.8 X10'3 (1.1-4.8); LYMPHOCYTES % (AUTO) 15.2 % (21-51); MEAN CORPUSCULAR HEMOGLOBIN 29.2 PG (27.0-31.0); MEAN CORPUSCULAR HGB CONC 33.4 g/dL (33.0-36.5); MEAN CORPUSCULAR VOLUME 87.4 FL (78-98); MEAN PLATELET VOLUME 8.4 FL (7.4-10.4); MONOCYTES # (AUTO) 0.8 X10'3 (0-0.9); NEUTROPHILS # (AUTO) 8.7 X10'3 (1.8-7.7); PLATELET COUNT 408 X10'3 (140-440); RED BLOOD COUNT 3.48 X10'6 (4.20-5.60); RED CELL DISTRIBUTION WIDTH 14.1 % (11.5-14.5); WHITE BLOOD COUNT 12.1 X10'3 (4.5-11.0)
--- NOTE | 2018-10-21 06:36 | NUR ---
Problems reprioritized. Patient report given, questions answered & plan of care reviewed with Jimena JOSEPH.
[2018-10-21 07:00] VITALS: BP 162/93
[2018-10-21] MEDS: lactobacillus rhamnosus 10,000 MMU CELLS/CAPSULE PO SCH (07:29)
[2018-10-21] MEDS: hyDRALAzine 10mg tablet PO SCH ×2 (07:31→12:53)
[2018-10-21] MEDS: famotidine 20mg tablet PO SCH (07:31)
[2018-10-21] MEDS: piperacillin/tazo 3.375gm/50ml 50 ML IV SCH (07:33)
[2018-10-21] MEDS: metoprolol tartrate 25mg tablet PO SCH (07:33)
[2018-10-21 07:37] VITALS: BP 165/100
[2018-10-21 07:59] LABS: TOTAL CELLS COUNTED 100
[2018-10-21 08:00] LABS: PLATELET ESTIMATE NORMAL
[2018-10-21] MEDS ORDERED: K and/or MAG REPLACEMENT MC SCH (08:00)
[2018-10-21] MEDS ORDERED: potassium CL 10mEq/100ml bag 100 ML IV PRN ×2 (09:45)
[2018-10-21] MEDS ORDERED: potassium Cl 20 mEq SR tablet PO PRN ×2 (09:45)
[2018-10-21] MEDS ORDERED: potassium Cl 20 mEq SR tablet PO STA (10:47)
[2018-10-21 11:00] VITALS: BP 157/88
[2018-10-21] MEDS: morphine 2 MG/ML inj. syringe IV PRN (14:42)
[2018-10-21 15:00] VITALS: BP 159/102
--- NOTE | 2018-10-21 15:00 | NUR ---
Initial: Pt admit w/ sepsis, RUL PNA, HTN, and improving JEANNE per MD note. PO 0-25% regular diet past 5 days down from 100% PO on admit. LBM 10/19. Ensure pudding TIDWM added for additional protein/kcal needs. IF low PO continues may benefit from appetite stimulant; will continue to monitor for additional protein needs. Rec: 1. continue regular diet; encourage PO 2. ensure pudding TIDWM 3. monitor for additional ONS needs 4. weekly wts Addendum: 10/21/18 at [address] Amended: Links added.
[2018-10-21] MEDS ORDERED: METO25TA6 PO (15:47)
[2018-10-21] MEDS ORDERED: CEFD300C3 PO (15:47)
[2018-10-21] MEDS ORDERED: hyDRALAzine tablet PO (15:47)
--- NOTE | 2018-10-21 16:00 | NUR ---
PAGER ID: [phone] MESSAGE: [id number]; Imtiaz Esparza Pt. states you had agreed to send her home with a 1 week absence note from work. Can you sign work release please. Thanks! Josie AYALA [phone]
--- NOTE | 2018-10-21 16:15 | NUR ---
Called new script into [facility]'s pharmacy on [facility] and spoke with Pharmacist Mele. Mele advised to clarify with re: Hydralazine script. Supply is only good for 15 days.
--- NOTE | 2018-10-21 16:27 | NUR ---
PAGER ID: [phone] MESSAGE: [id number] Imtiaz Esparza Pls. call to verify new hydralazine script. Thanks! Josie AYALA [phone]
--- NOTE | 2018-10-21 17:25 | NUR ---
Patient stable for discharger per MD orders. All discharge instructions reviewed with patient and all questions answered. New prescriptions called into [facility] on [facility]. Patient to make follow up appointment with Dr. Cole within 1 week to be seen within a month. PIV discontinued, cannula intact. Telemetry monitoring discontinued. All patient belongings packed and sent with patient in private vehicle to home. Patient wheeled to lobby by RN, accompanied by mother.
--- NOTE | 2018-10-21 17:25 | NUR ---
[place] documentation: I have reviewed and agree with all interventions, assessments performed and documented by Josie JOSEPH. [place] Medication Administration: For this medication-pass time frame, all medication were reviewed, dispensed, administered and documented per hospital policy by Josie JOSEPH.
== END 2018-10-21 17:15 | disposition home or self-care (01) | DRG 871 ==
LOC: ER 01:06 → PCU 3S 04:17 → CMPBEDREQ 21:12
PROVIDERS: ADMIT Internal Medicine; ATTEND Family Medicine
PROC: BW241ZZ Computerized Tomography (CT Scan) of Chest and Abdomen using Low Osmolar Contrast (ICD-10-PCS; 2018-10-14)
PROC: CB121ZZ Planar Nuclear Medicine Imaging of Lungs and Bronchi using Technetium 99m (Tc-99m) (ICD-10-PCS; principal; 2018-10-16)
DX: A41.9 Sepsis, unspecified organism (principal); J18.1 Lobar pneumonia, unspecified organism; J96.90 Respiratory failure, unspecified, unspecified whether with hypoxia or hypercapnia; N17.9 Acute kidney failure, unspecified; E87.2 Acidosis; R65.20 Severe sepsis without septic shock; J06.9 Acute upper respiratory infection, unspecified; I10 Essential (primary) hypertension; F32.9 Major depressive disorder, single episode, unspecified; R04.0 Epistaxis; G89.29 Other chronic pain; M54.9 Dorsalgia, unspecified; M54.2 Cervicalgia; R00.0 Tachycardia, unspecified; Z79.899 Other long term (current) drug therapy; Z90.49 Acquired absence of other specified parts of digestive tract
CPT/HCPCS: 36415; 36600; 71045; 71260; 76775; 76937; 78582; 80048; 80053; 80202; 80305; 81001; 81025; 82570; 82803; 83605; 83735; 83880; 84100; 84132; 84145; 84300; 85018; 85025; 85379; 85610; 85730; 87040; 87070; 87081; 87207; 93005; 93970; 94640; 94760; 96361; 96365; 96367; 96375; 97110; 97116; 97161; 97530; 99285; A9539; A9540; G0378; J0360; J0456; J0696; J1644; J1940; J2270; J2543; J3370; J7030; J7611; Q9967

== ENCOUNTER 2018-10-30 13:19 | Emergency (ER) | payer BC ==
[~2018-10-30] VITALS: Ht 157.5 cm; Wt 97.7 kg
[~2018-10-30 13:19] MED LIST: CEFD300C3 PO; CYCL-1 PO; DESV25TA PO; GABA-532 PO; HYDR-4353 PO; METO25TA6 PO; OVRAL; hyDRALAzine tablet PO
[2018-10-30] MEDS ORDERED: methylPREDNISolone sod succ 125mg/2ml vial IV ONE (15:00)
[2018-10-30] MEDS ORDERED: normal saline 1000ML IV soln IVB ONE (15:00)
[2018-10-30] MEDS ORDERED: ipratropium/albuterol 3ml nebule NEB ONE (15:00)
[2018-10-30 16:18] LABS: EOSINOPHILS # (AUTO) 0.2 X10'3 (0-0.9)
[2018-10-30 16:21] LABS: EOSINOPHILS % (AUTO) 1.7 % (0-6); HEMATOCRIT 31.3 % (35.0-45.0); HEMOGLOBIN 10.2 g/dl (12.0-16.0); LYMPHOCYTES # (AUTO) 3.5 X10'3 (1.1-4.8); LYMPHOCYTES % (AUTO) 24.3 % (21-51); MEAN CORPUSCULAR HEMOGLOBIN 28.5 PG (27.0-31.0); MEAN CORPUSCULAR HGB CONC 32.7 g/dL (33.0-36.5); MEAN CORPUSCULAR VOLUME 87.2 FL (78-98); MEAN PLATELET VOLUME 9.2 FL (7.4-10.4); MONOCYTES # (AUTO) 1.4 X10'3 (0-0.9); NEUTROPHILS # (AUTO) 8.9 X10'3 (1.8-7.7); NEUTROPHILS % (AUTO) 61.5 % (42-75); PLATELET COUNT 668 X10'3 (140-440); RED BLOOD COUNT 3.59 X10'6 (4.20-5.60); RED CELL DISTRIBUTION WIDTH 13.6 % (11.5-14.5); WHITE BLOOD COUNT 14.5 X10'3 (4.5-11.0)
[2018-10-30 16:24] LABS: BASOPHILS # (AUTO) 0.3 X10'3 (0-0.2); BASOPHILS % (AUTO) 2.1 % (0-1)
[2018-10-30 16:37] LABS: ALANINE AMINOTRANSFERASE 99 U/L (12-78); ALBUMIN 2.8 G/DL (3.4-5.0); ALBUMIN/GLOBULIN RATIO 0.6 (1.1-1.5); ALKALINE PHOSPHATASE 82 IU/L (46-116); ANION GAP 12 (8-16); ASPARTATE AMINO TRANSFERASE 60 U/L (10-37); BILIRUBIN,TOTAL 0.2 MG/DL (0.1-1.0); BLOOD UREA NITROGEN 11 MG/DL (7-18); BUN/CREATININE RATIO 7.1 (6.6-38.0); CALCIUM 8.9 MG/DL (8.5-10.1); CHLORIDE 106 MMOL/L (99-107); CREATININE 1.56 MG/DL (0.40-0.90); GLUCOSE 65 MG/DL (70-104); POTASSIUM 3.4 MMOL/L (3.5-5.1); SODIUM 142 MMOL/L (135-145); TOTAL CARBON DIOXIDE 23.7 MMOL/L (24-32); TOTAL PROTEIN 7.4 G/DL (6.4-8.2); eGFR 36 ML/MIN
[2018-10-30] MEDS ORDERED: CefTRIAXone 2gm/D5W 50ml 50 ML IV ONE (16:40)
[2018-10-30] MEDS ORDERED: azithromycin/NS 500mg/250ml 250 ML IV ONE (16:40)
[2018-10-30] MEDS ORDERED: morphine 4 MG/ML inj SYRINge IV ONE (16:50)
[2018-10-30] MEDS ORDERED: PRED20TA PO (16:58)
[2018-10-30] MEDS ORDERED: CEPH250T PO (16:58)
[2018-10-30] MEDS ORDERED: ALBU6.7H9 INH (16:58)
[2018-10-30 18:36] VITALS: BP 160/103
== END 2018-10-30 18:37 | disposition home or self-care (01) ==
LOC: ER 13:20
DX: J18.9 Pneumonia, unspecified organism (principal); R06.02 Shortness of breath; Z79.899 Other long term (current) drug therapy
CPT/HCPCS: 36415; 71046; 80053; 84145; 85025; 93005; 94640; 94760; 96365; 96368; 96375; 99284; J0456; J0696; J2270; J2930; J7030

== ENCOUNTER 2018-11-07 18:27 | Emergency (ER) | payer BC ==
[~2018-11-07] VITALS: Ht 157.5 cm; Wt 95.0 kg
[~2018-11-07 18:27] MED LIST changes: +ALBU6.7H9 INH; +CEPH250T PO
[2018-11-07 19:35] LABS: URINE HCG NEGATIVE (NEG)
[2018-11-07 19:46] LABS: BASOPHILS # (AUTO) 0.2 X10'3 (0-0.2); BASOPHILS % (AUTO) 1.4 % (0-1); EOSINOPHILS # (AUTO) 0.3 X10'3 (0-0.9); EOSINOPHILS % (AUTO) 2.4 % (0-6); HEMATOCRIT 35.6 % (35.0-45.0); HEMOGLOBIN 12.1 g/dl (12.0-16.0); LYMPHOCYTES # (AUTO) 3.1 X10'3 (1.1-4.8); LYMPHOCYTES % (AUTO) 24.1 % (21-51); MEAN CORPUSCULAR HEMOGLOBIN 29.4 PG (27.0-31.0); MEAN CORPUSCULAR HGB CONC 33.9 g/dL (33.0-36.5); MEAN CORPUSCULAR VOLUME 86.8 FL (78-98); MEAN PLATELET VOLUME 9.7 FL (7.4-10.4); MONOCYTES # (AUTO) 0.8 X10'3 (0-0.9); MONOCYTES % (AUTO) 6.4 % (2-12); NEUTROPHILS # (AUTO) 8.5 X10'3 (1.8-7.7); NEUTROPHILS % (AUTO) 65.7 % (42-75); PLATELET COUNT 435 X10'3 (140-440); RED CELL DISTRIBUTION WIDTH 13.9 % (11.5-14.5); WHITE BLOOD COUNT 12.9 X10'3 (4.5-11.0)
[2018-11-07 19:48] LABS: CLARITY,URINE CLEAR (Clear); COLOR,URINE YELLOW (Yellow); GLUCOSE, URINE NEGATIVE (Neg); KETONES,URINE NEGATIVE (Neg); LEUKOCYTE ESTERASE ,URINE NEGATIVE (Neg); NITRITES, URINE NEGATIVE (Neg); OCCULT BLOOD,URINE NEGATIVE (Neg); PROTEIN,URINE NEGATIVE (Neg); UROBILINOGEN,URINE 0.2 E.U/dL (0.2-1.0)
[2018-11-07 19:56] LABS: UA COLLECTION TYPE CLN CATCH MIDSTREAM
[2018-11-07 19:58] LABS: ALANINE AMINOTRANSFERASE 93 U/L (12-78); ALBUMIN 3.7 G/DL (3.4-5.0); ALBUMIN/GLOBULIN RATIO 0.8 (1.1-1.5); ALKALINE PHOSPHATASE 96 IU/L (46-116); ANION GAP 12 (8-16); ASPARTATE AMINO TRANSFERASE 25 U/L (10-37); BILIRUBIN,TOTAL 0.2 MG/DL (0.1-1.0); BLOOD UREA NITROGEN 11 MG/DL (7-18); BUN/CREATININE RATIO 10.7 (6.6-38.0); CALCIUM 9.8 MG/DL (8.5-10.1); CHLORIDE 104 MMOL/L (99-107); CREATININE 1.03 MG/DL (0.40-0.90); GLUCOSE 98 MG/DL (70-104); POTASSIUM 3.2 MMOL/L (3.5-5.1); SODIUM 141 MMOL/L (135-145); TOTAL CARBON DIOXIDE 25.4 MMOL/L (24-32); TOTAL PROTEIN 8.6 G/DL (6.4-8.2); eGFR 58 ML/MIN
[2018-11-07] MEDS ORDERED: normal saline 1000ml 1,000 ML IV ONE (20:45)
[2018-11-07] MEDS ORDERED: ondansetron 4mg rapidly disintigrating tab PO ONE (20:45)
[2018-11-07] MEDS ORDERED: HYDROcodone/acetaminophen 5mg/325mg tablet PO ONE (20:45)
[2018-11-07] MEDS ORDERED: iohexol 350MG/ML 100ml bottle IV ONE (20:51)
[2018-11-07] MEDS ORDERED: CEPH-572 PO (21:54)
[2018-11-07 22:14] VITALS: BP 146/84
--- NOTE | 2018-11-07 22:14 | NUR ---
INSTRUCTED PT TO DRINK MINIMALLY 6 BOTTLES OF WATER PER DAY. HER FRIEND STATES SHE WILL MAKE SURE SHE DOES. SHE IS FINISHING A BOTTLE RIGHT NOW.
== END 2018-11-07 22:16 | disposition home or self-care (01) ==
LOC: ER 18:28
DX: J18.1 Lobar pneumonia, unspecified organism (principal); R10.9 Unspecified abdominal pain; Z79.899 Other long term (current) drug therapy
CPT/HCPCS: 36415; 71275; 80053; 81003; 81025; 84145; 85025; 93005; 99284; J7030; Q9967

== ENCOUNTER 2022-05-14 21:28 | Emergency (ER) | payer BC ==
[~2022-05-14] VITALS: Ht 154.9 cm; Wt 95.5 kg
[~2022-05-14 21:28] MED LIST changes: +ALBU6.7H14 INH; -ALBU6.7H9 INH; -CEFD300C3 PO; -CEPH250T PO; +LOP25T PO; -METO25TA6 PO
[2022-05-15] MEDS ORDERED: cloNIDine 0.1 mg tablet PO ONE (00:50)
[2022-05-15] MEDS ORDERED: CLON0.1T PO (01:29)
[2022-05-15 01:39] VITALS: BP 182/113
== END 2022-05-15 01:40 | disposition home or self-care (01) ==
LOC: ER 21:30
DX: I10 Essential (primary) hypertension (principal); G43.909 Migraine, unspecified, not intractable, without status migrainosus; Z79.899 Other long term (current) drug therapy; Z79.1 Long term (current) use of non-steroidal anti-inflammatories (NSAID); Z79.2 Long term (current) use of antibiotics
CPT/HCPCS: 99283